=== PATIENT | female | born 1930 | race Caucasian/White ===

== ENCOUNTER 2018-11-23 12:31 | Inpatient (IN) | payer MEDICARE, OTHER ==
[~2018-11-23] VITALS: Ht 160 cm; Wt 61.3 kg
[2018-11-23] MEDS ORDERED: SODIUM CHLORIDE 0.9% 1000ML 1,000 ML IV STA (12:32)
--- OUTSIDE RECORDS SUMMARY | 2018-11-23 12:34 | XMS REPORT | Summary of Care ---
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
--- OUTSIDE RECORDS SUMMARY | 2018-11-23 12:34 | XMS REPORT | Continuity of Care Document ---
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 11/20/2012 [facility] [place] H/O: stroke Active Problem 04/28/2011 [facility] [place] BP - High blood pressure Active Problem 03/23/2014 [facility] [place] H/O: stroke Active Problem 03/23/2014 [facility] [place] Hyperlipidemia Active Problem 03/23/2014 [facility] [place] 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 03/23/2014 [facility] [place] OSTEOARTHROS NOS-L/LEG Active [facility] Medications Medication Details Route Status Patient Instructions Ordering Provider Order Date Source acetaminophen-hydrocodone 325 mg-5 mg oral tablet 1 tab, Route: PO, Drug Form: TAB, Q2H, PRN Pain, Start date: 11/07/10 15:13:00, Duration: 30 day, Stop date: 12/07/10 15:12:00 PO No Longer Active [place] 11/07/2010 [facility] acetaminophen-hydrocodone 325 mg-5 mg oral tablet 2 tab, Route: PO, Drug Form: TAB, Q4H, PRN Pain, Start date: 11/07/10 8:03:00, Duration: 30 day, Stop date: 12/07/10 8:02:00 PO No Longer Active [facility] 11/07/2010 [facility] morphine Sulfate 1 mg, 0.2 mL, Route: IV, Drug form: INJ, Q2H, PRN Breakthrough Pain, Start date: 11/06/10 17:21:00, Duration: 30 day, Stop date: 12/06/10 17:20:00 IV No Longer Active [facility] 11/06/2010 [facility] Norvasc 5 mg, 1 tab, Route: PO, Drug form: TAB, Daily, Start date: 11/06/10 9:00:00, Duration: 30 day, Stop date: 12/05/10 9:00:00 PO No Longer Active [facility] 11/06/2010 [facility] Lovenox 40 mg, 0.4 mL, Route: SUB-Q, Drug form: INJ, Daily, Start date: 11/06/10 8:00:00, Duration: 30 day, Stop date: 12/05/10 8:00:00 SUB-Q No Longer Active [facility] 11/06/2010 [facility] Restoril 30 mg, 1 cap, Route: PO, Drug form: CAP, Bedtime, PRN Sleep, Start date: 11/05/10 21:00:00, Duration: 30 day, Stop date: 12/05/10 20:59:00 PO No Longer Active [facility] 11/06/2010 [facility] Pepcid 20 mg, 1 tab, Route: PO, Drug form: TAB, Q12H, Start date: 11/05/10 21:00:00, Duration: 30 day, Stop date: 12/05/10 9:00:00 PO No Longer Active [facility] 11/06/2010 [facility] docusate sodium 100 mg oral capsule 100 mg, 1 cap, Route: PO, Drug form: CAP, BID, Start date: 11/05/10 17:00:00, Duration: 30 day, Stop date: 12/05/10 9:00:00 PO No Longer Active [place] 11/05/2010 [facility] Lipitor 10 mg, 1 tab, Route: PO, Drug form: TAB, QPM, Start date: 11/05/10 17:00:00, Duration: 30 day, Stop date: 12/04/10 17:00:00 PO No Longer Active [place] 11/05/2010 [facility] Celebrex 200 mg, 1 cap, Route: PO, Drug form: CAP, BID, Start date: 11/05/10 17:00:00, Duration: 5 day, Stop date: 11/10/10 9:00:00 PO No Longer Active [place] 11/05/2010 [facility] BD Normal Saline Flush 10 mL, Route: IVP, Drug Form: INJ, Q8H, Start date: 11/05/10 16:00:00, Duration: 30 day, Stop date: 12/05/10 8:00:00 IVP No Longer Active [facility] 11/05/2010 [facility] Cleocin HCl 600 mg, 50 mL, Route: IVPB, Drug form: INJ, ABXQ8H, Start date: 11/05/10 15:00:00, Duration: 3 doses or times, Stop date: 11/06/10 7:00:00 IVPB No Longer Active [facility] 11/05/2010 [facility] ropivacaine 10 mL, Route: NERVE BLOCK, Drug Form: INJ, Q3H, PRN Breakthrough Pain, Start date: 11/05/10 11:02:00, Duration: 30 day, Stop date: 12/05/10 11:01:00 NERVE BLOCK No Longer Active [facility] 11/05/2010 [facility] acetaminophen-hydrocodone 500 mg-5 mg oral tablet 2 tab, Route: PO, Drug Form: TAB, Q4H, PRN Breakthrough Pain, Start date: 11/05/10 11:02:00, Duration: 30 day, Stop date: 12/05/10 11:01:00 PO No Longer Active [place] 11/05/2010 [facility] Zofran 4 mg, 2 mL, Route: IVP, Drug form: INJ, Q6H, PRN Nausea, Start date: 11/05/10 11:02:00, Duration: 30 day, Stop date: 12/05/10 11:01:00 IVP No Longer Active [facility] 11/05/2010 [facility] ropivacaine 0.1% in NS 250 mL 250 mL, Route: EPIDURAL, Drug Form: INJ, Start date: 11/05/10 11:02:00, Duration: 30 day, Stop date: 12/05/10 11:01:00 EPIDURAL No Longer Active [facility] 11/05/2010 [facility] ropivacaine 0.1% in NS 250 mL 250 mL, Route: EPIDURAL, Drug Form: INJ, Start date: 11/05/10 11:01:00, Duration: 30 day, Stop date: 12/05/10 11:00:00 EPIDURAL No Longer Active [facility] 11/05/2010 [facility] Lactated Ringers Injection IV 1,000 mL 1,000 mL, Rate: 100 ml/hr, Infuse over: 10 hr, Route: IV, Total Volume: 1,000, Start date: 11/05/10 10:55:00, Stop date: 11/06/10 10:54:00 IV No Longer Active [place] 11/05/2010 [facility] BD Normal Saline Flush 10 mL, Route: IVP, Drug Form: INJ, PRN, PRN Line Flush, Start date: 11/05/10 10:54:00, Duration: 30 day, Stop date: 12/05/10 10:53:00 IVP No Longer Active [facility] 11/05/2010 [facility] Zofran ODT 8 mg, 2 tab, Route: PO, Drug form: TABDIS, Q8H, PRN Nausea, Start date: 11/05/10 10:52:00, Duration: 30 day, Stop date: 12/05/10 10:51:00 PO No Longer Active [facility] 11/05/2010 [facility] Dulcolax Laxative 10 mg, 1 supp, Route: WA, Drug form: SUPP, PRN, PRN Constipation, Start date: 11/05/10 10:52:00, Duration: 30 day, Stop date: 12/05/10 10:51:00 WA No Longer Active [facility] 11/05/2010 [facility] acetaminophen-hydrocodone 500 mg-7.5 mg oral tablet 2 tab, Route: PO, Drug Form: TAB, Q3H, PRN Pain, Start date: 11/05/10 10:52:00, Duration: 30 day, Stop date: 12/05/10 10:51:00 PO No Longer Active [place] 11/05/2010 [facility] acetaminophen-oxycodone 325 mg-5 mg oral tablet 2 tab, Route: PO, Drug Form: TAB, Q3H, PRN Pain, Start date: 11/05/10 10:52:00, Duration: 30 day, Stop date: 12/05/10 10:51:00 PO No Longer Active [place] 11/05/2010 [facility] acetaminophen-oxycodone 325 mg-5 mg oral tablet 1 tab, Route: PO, Drug Form: TAB, Q3H, PRN Pain, Start date: 11/05/10 10:51:00, Duration: 30 day, Stop date: 12/05/10 10:50:00 PO No Longer Active [place] 11/05/2010 [facility] Cepastat 1 lozenge, Route: MUCOUS MEM, PRN, Drug form: JOE PRN Sore Throat, Start date: 11/05/10 10:51:00, Duration: 30 day, Stop date: 12/05/10 10:50:00 MUCOUS MEM No Longer Active [facility] 11/05/2010 [facility] aluminum hydroxide-magnesium hydroxide 200 mg-200 mg/5 mL oral suspension 30 mL, Route: PO, Drug Form: SUSP, Q4H, PRN Indigestion, Start date: 11/05/10 10:51:00, Duration: 30 day, Stop date: 12/05/10 10:50:00 PO No Longer Active [facility] 11/05/2010 [facility] Benadryl 25 mg, 1 cap, Route: PO, Drug form: CAP, Q4H, PRN Itching, Start date: 11/05/10 10:51:00, Duration: 30 day, Stop date: 12/05/10 10:50:00 PO No Longer Active [facility] 11/05/2010 [facility] Tylenol 650 mg, 1 supp, Route: WA, Drug form: SUPP, Q4H, PRN Pain/Fever, Start date: 11/05/10 10:50:00, Duration: 30 day, Stop date: 12/05/10 10:49:00 WA No Longer Active [facility] 11/05/2010 [facility] Allergies, Adverse Reactions, Alerts Substance Category Reaction Severity Reaction type Status Date Reported Comments Source NKFA drug allergy Allergy Active [facility] penicillins drug allergy Allergy Active [facility] Immunizations Immunization Date Given Site Status Last Updated Comments Source Results Order Name Results Value Reference Range Date Interpretation Comments Source Humerus 2 views DX Humerus 2 views DX HISTORY: Pain TECHNIQUE: AP and lateral views of the right humerus COMPARISON: None FINDINGS: No acute fracture or dislocation. No suspicious osseous lesion. Moderate osteoarthritis seen at the acromioclavicular and glenohumeral joints. No overlying soft tissue abnormality. IMPRESSION: Moderate degenerative changes without evidence for acute osseous abnormality. 03/21/2014 - - Read by: Delmy Werner MD Dictated Date/time: 03/21/14 11:09 Electronically Signed by: Delmy Werner MD 03/21/14 11:09 FINAL REPORT RICHARD Metcalf Carotid artery Doppler bilat US Carotid artery Doppler bilat US CAROTID DOPPLER CLINICAL HISTORY: CVA TECHNIQUE: Grayscale, color Doppler, and spectral Doppler sonography were performed on both carotid and vertebral arteries. FINDINGS: Right: Mild plaque is seen at the carotid bifurcation. ICA PSV: 70 cm/s CCA PSV: 66 cm/s ICA/CCA PSV ratio: 1.1 Vertebral artery: Antegrade flow. Left: No significant atherosclerotic plaque is seen in the CCA or ICA. ICA PSV: 74 cm/s CCA PSV: 77 cm/s ICA/CCA PSV ratio: 0.9 Vertebral artery: Antegrade flow. PSV: Peak systolic velocity IMPRESSION: No sonographic evidence of hemodynamically significant carotid stenosis. According to the 2002 Consensus criteria: <50% stenosis: PSV <125 cm/sec, EDV <40cm/sec, ICA:CCA ratio <2 50-69% stenosis: PSV 125-230cm/sec, EDV 40-100cm/sec, ICA:CCA ratio 2-4 >70% stenosis: PSV >230cm/sec, EDV >100cm/sec, ICA:CCA ratio >4 03/21/2014 - - Read by: Delmy Werner MD Dictated Date/time: 03/21/14 08:07 Electronically Signed by: Delmy Werner MD 03/21/14 08:08 FINAL REPORT RICH[facility] Metcal[facility] Chest w contrast CT Chest w contrast CT CT scan of the chest with contrast 11/18/2012 CLINICAL HISTORY: Pulmonary nodule COMPARISON: 07/24/2010 FINDINGS: Relative to the prior examination, there has been no significant change. The supraclavicular region demonstrates a a stable appearing mixed attenuation nodule seen in the lower most aspect of left thyroid lobe that reaches a diameter of 1.6 cm. Elsewhere, the supraclavicular region is within normal limits. Few fat-containing lymph nodes are identified in the right axilla and no significantly enlarged mediastinal or hilar lymph nodes. The anterior left midlung zone demonstrates a subpleural roughly 8 millimeter pulmonary nodule that appears stable since previous. No additional nodular identified within the chest. No significant pleural or pericardial effusion is identified. The airway is patent. Cardiac chambers are normal in size and configuration. Minimal scarlike changes are identified in the basilar left lung base as well as the paravertebral right lung base. The upper abdominal structures are within the range of normal. IMPRESSION: Stable subpleural 8 mm pulmonary nodule left midlung zone appears unchanged since previous. 1.6 cm mixed attenuation nodule in left lower pole of the thyroid gland is likewise unchanged. 11/18/2012 - - Read by: Mikey Haynes Dictated Date/time: 11/19/12 11:29 Electronically Signed by: Mikey Haynes MD 11/19/12 11:38 FINAL REPORT RICHARD Metcalf Thyroid US Thyroid US THYROID ULTRASOUND HISTORY: 82 year-old female with a thyroid nodule. TECHNIQUE: Real-time minaya-scale imaging of the thyroid was performed with a high resolution transducer and supplemented with color Doppler. COMPARISON: None. FINDINGS: Right lobe dimensions are 4.4 x 1.5 x 1.7 cm. The isthmus is 0.4 cm in AP axis. The left lobe is 4.8 x 1.7 x 2 cm. The gland vascularity is normal. Multiple nodules seen in both lobes, the nodules are solid with heterogeneous echo structure. No calcifications seen in nodules. The right lobe at the upper pole has a solid complex nodule 1.4 x 1.8 x 0.9 cm. The left lobe at the upper pole has a solid complex nodule 1.8 x 2 x 1.6 cm at the mid third 1.4 x 1.6 x 1.4 cm and at the lower pole 1.3 x 1.6 x 1.3 cm. IMPRESSION: 1. Multinodular goiter. 2. Scattered nodules in both lobes largest on the right 1.8 cm at the upper pole and largest on the left also at the upper pole 2.0 cm. 11/18/2012 - - Read by: oKry Ly Dictated Date/time: 11/18/12 16:48 Electronically Signed by: Kory Ly MD 11/18/12 16:53 FINAL REPORT ISABELLA Metcal[facility] HEMATOLOGY Hct 27.0 % 36.0 - 48.0 11/07/2010 [facility] HEMATOLOGY Hgb 9.3 g/dL 12.0 - 16.0 11/07/2010 [facility] HEMATOLOGY Hct 28.5 % 36.0 - 48.0 11/06/2010 [facility] HEMATOLOGY Hgb 9.9 g/dL 12.0 - 16.0 11/06/2010 [facility] Vital Signs Vital Sign Value Date Comments Source Diastolic (mm Hg) 70.0 11/08/2010 [facility] Peripheral Pulse Rate 90.0 11/08/2010 [facility] Systolic (mm Hg) 121.0 11/08/2010 [facility] Temperature Oral (F) 99.1 F 11/08/2010 [facility] Respitory Rate 18.0 11/08/2010 [facility] Diastolic (mm Hg) 57.0 11/08/2010 [facility] Temperature Oral (F) 97.0 F 11/08/2010 [facility] Peripheral Pulse Rate 91.0 11/08/2010 [facility] Systolic (mm Hg) 122.0 11/08/2010 [facility] Respitory Rate 18.0 11/08/2010 [facility] Diastolic (mm Hg) 58.0 11/08/2010 [facility] Peripheral Pulse Rate 82.0 11/08/2010 [facility] Respitory Rate 18.0 11/08/2010 [facility] Temperature Oral (F) 97.0 F 11/08/2010 [facility] Systolic (mm Hg) 127.0 11/08/2010 [facility] Diastolic (mm Hg) 58.0 11/07/2010 [facility] Temperature Oral (F) 97.0 F 11/07/2010 [facility] Systolic (mm Hg) 108.0 11/07/2010 [facility] Respitory Rate 18.0 11/07/2010 [facility] Peripheral Pulse Rate 78.0 11/07/2010 [facility] Diastolic (mm Hg) 62.0 11/07/2010 [facility] Peripheral Pulse Rate 72.0 11/07/2010 [facility] Systolic (mm Hg) 107.0 11/07/2010 [facility] Temperature Oral (F) 97.1 F 11/07/2010 [facility] Respitory Rate 18.0 11/07/2010 [facility] Diastolic (mm Hg) 57.0 11/07/2010 [facility] Temperature Oral (F) 97.0 F 11/07/2010 [facility] Peripheral Pulse Rate 73.0 11/07/2010 [facility] Systolic (mm Hg) 104.0 11/07/2010 [facility] Respitory Rate 18.0 11/07/2010 [facility] Diastolic (mm Hg) 57.0 11/07/2010 [facility] Peripheral Pulse Rate 82.0 11/07/2010 [facility] Respitory Rate 18.0 11/07/2010 [facility] Temperature Oral (F) 97.5 F 11/07/2010 [facility] Systolic (mm Hg) 111.0 11/07/2010 [facility] Diastolic (mm Hg) 43.0 11/07/2010 [facility] Temperature Oral (F) 97.9 F 11/07/2010 [facility] Systolic (mm Hg) 90.0 11/07/2010 [facility] Respitory Rate 18.0 11/07/2010 [facility] Peripheral Pulse Rate 74.0 11/07/2010 [facility] Diastolic (mm Hg) 63.0 11/06/2010 [facility] Peripheral Pulse Rate 81.0 11/06/2010 [facility] Systolic (mm Hg) 114.0 11/06/2010 [facility] Temperature Oral (F) 97.2 F 11/06/2010 [facility] Respitory Rate 21.0 11/06/2010 [facility] Diastolic (mm Hg) 62.0 11/06/2010 [facility] Temperature Oral (F) 97.6 F 11/06/2010 [facility] Peripheral Pulse Rate 82.0 11/06/2010 [facility] Systolic (mm Hg) 111.0 11/06/2010 [facility] Respitory Rate 18.0 11/06/2010 [facility] Diastolic (mm Hg) 54.0 11/06/2010 [facility] Peripheral Pulse Rate 85.0 11/06/2010 [facility] Respitory Rate 20.0 11/06/2010 [facility] Temperature Oral (F) 98.1 F 11/06/2010 [facility] Systolic (mm Hg) 100.0 11/06/2010 [facility] Diastolic (mm Hg) 51.0 11/06/2010 [facility] Temperature Oral (F) 97.5 F 11/06/2010 [facility] Systolic (mm Hg) 92.0 11/06/2010 [facility] Respitory Rate 20.0 11/06/2010 [facility] Peripheral Pulse Rate 87.0 11/06/2010 [facility] Diastolic (mm Hg) 63.0 11/05/2010 [facility] Temperature Oral (F) 96.5 F 11/05/2010 [facility] Peripheral Pulse Rate 78.0 11/05/2010 [facility] Systolic (mm Hg) 112.0 11/05/2010 [facility] Respitory Rate 18.0 11/05/2010 [facility] Diastolic (mm Hg) 65.0 11/05/2010 [facility] Peripheral Pulse Rate 89.0 11/05/2010 [facility] Systolic (mm Hg) 114.0 11/05/2010 [facility] Respitory Rate 18.0 11/05/2010 [facility] Diastolic (mm Hg) 65.0 11/05/2010 [facility] Peripheral Pulse Rate 75.0 11/05/2010 [facility] Respitory Rate 18.0 11/05/2010 [facility] Systolic (mm Hg) 112.0 11/05/2010 [facility] Diastolic (mm Hg) 61.0 11/05/2010 [facility] Systolic (mm Hg) 100.0 11/05/2010 [facility] Respitory Rate 18.0 11/05/2010 [facility] Peripheral Pulse Rate 80.0 11/05/2010 [facility] Diastolic (mm Hg) 61.0 11/05/2010 [facility] Peripheral Pulse Rate 68.0 11/05/2010 [facility] Systolic (mm Hg) 105.0 11/05/2010 [facility] Respitory Rate 18.0 11/05/2010 [facility] Diastolic (mm Hg) 58.0 11/05/2010 [facility] Peripheral Pulse Rate 70.0 11/05/2010 [facility] Systolic (mm Hg) 108.0 11/05/2010 [facility] Respitory Rate 18.0 11/05/2010 [facility] Diastolic (mm Hg) 57.0 11/05/2010 [facility] Peripheral Pulse Rate 65.0 11/05/2010 [facility] Respitory Rate 18.0 11/05/2010 [facility] Systolic (mm Hg) 106.0 11/05/2010 [facility] Diastolic (mm Hg) 62.0 11/05/2010 [facility] Systolic (mm Hg) 114.0 11/05/2010 [facility] Respitory Rate 18.0 11/05/2010 [facility] Peripheral Pulse Rate 67.0 11/05/2010 [facility] Diastolic (mm Hg) 59.0 11/05/2010 [facility] Peripheral Pulse Rate 67.0 11/05/2010 [facility] Systolic (mm Hg) 98.0 11/05/2010 [facility] Respitory Rate 18.0 11/05/2010 [facility] Diastolic (mm Hg) 55.0 11/05/2010 [facility] Peripheral Pulse Rate 61.0 11/05/2010 [facility] Respitory Rate 18.0 11/05/2010 [facility] Systolic (mm Hg) 95.0 11/05/2010 [facility] Diastolic (mm Hg) 60.0 11/05/2010 [facility] Peripheral Pulse Rate 67.0 11/05/2010 [facility] Respitory Rate 18.0 11/05/2010 [facility] Systolic (mm Hg) 99.0 11/05/2010 [facility] Diastolic (mm Hg) 59.0 11/05/2010 [facility] Temperature Oral (F) 96.7 F 11/05/2010 [facility] Weight 60.0 11/05/2010 [facility] Systolic (mm Hg) 99.0 11/05/2010 [facility] Respitory Rate 18.0 11/05/2010 [facility] Height 152.4 cm 11/05/2010 [facility] Peripheral Pulse Rate 69.0 11/05/2010 [facility] Diastolic (mm Hg) 55.0 11/05/2010 [facility] Respitory Rate 8.0 11/05/2010 [facility] Systolic (mm Hg) 103.0 11/05/2010 [facility] Diastolic (mm Hg) 56.0 11/05/2010 [facility] Respitory Rate 19.0 11/05/2010 [facility] Systolic (mm Hg) 105.0 11/05/2010 [facility] Diastolic (mm Hg) 57.0 11/05/2010 [facility] Respitory Rate 21.0 11/05/2010 [facility] Systolic (mm Hg) 110.0 11/05/2010 [facility] Diastolic (mm Hg) 65.0 11/05/2010 [facility] Systolic (mm Hg) 101.0 11/05/2010 [facility] Respitory Rate 18.0 11/05/2010 [facility] Diastolic (mm Hg) 64.0 11/05/2010 [facility] Respitory Rate 14.0 11/05/2010 [facility] Systolic (mm Hg) 113.0 11/05/2010 [facility] Diastolic (mm Hg) 61.0 11/05/2010 [facility] Respitory Rate 15.0 11/05/2010 [facility] Systolic (mm Hg) 110.0 11/05/2010 [facility] Diastolic (mm Hg) 61.0 11/05/2010 [facility] Respitory Rate 15.0 11/05/2010 [facility] Systolic (mm Hg) 110.0 11/05/2010 [facility] Diastolic (mm Hg) 87.0 11/05/2010 [facility] Systolic (mm Hg) 143.0 11/05/2010 [facility] Temperature Oral (F) 98.0 F 11/05/2010 [facility] Height 152.4 cm 10/24/2010 [facility] Weight 59.4 10/24/2010 [facility] Encounters Location Location Details Encounter Type Encounter Number Reason For Visit Attending Provider ADM Date DC Date Status Source [facility] Inpatient [id number] W SHIRIN 11/05/2010 11/08/2010 Active [facility] [place] [facility] [id number] Ion Hendrix Jr 03/21/2014 03/22/2014 ISABELLA Metcalf Procedures Procedure Code Date Perfomer Comments Source
--- OUTSIDE RECORDS SUMMARY | 2018-11-23 12:34 | XMS REPORT | CCD ---
Author Author Auto Generated Organization [facility] Outpatient [facility] Address Unknown Phone Unavailable Care Team Providers Care Systems Navigator Name Role Phone Soumya Quiñones CP ChartServer, Login CP Unavailable Batsheva Stark CP [phone] Aurora Collier CP [phone] Meet Moreno CP Allergies, Adverse Reactions, Alerts Substance Reaction Status NKFA ?? Active penicillins ?? Active Problem List Condition Effective Dates Status BP - High blood pressure ?? Active H/O: stroke ?? Active Hyperlipidemia ?? 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
--- OUTSIDE RECORDS SUMMARY | 2018-11-23 12:34 | XMS REPORT | CCD ---
Author Author Auto Generated Organization [facility] Outpatient [facility] Address Unknown Phone Unavailable Care Team Providers Care Edger Automatic Name Role Phone Nuria Soumya CP ChartServer, Login CP Unavailable Batsheva Stark CP [phone] Aurora Collier CP [phone] Mikey Pérez III CP Allergies, Adverse Reactions, Alerts Substance Reaction Status NKFA ?? Active penicillins ?? Active Problem List Condition Effective Dates Status BP - High blood pressure ?? Active H/O: stroke ?? Active Hyperlipidemia ?? 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
--- OUTSIDE RECORDS SUMMARY | 2018-11-23 12:34 | XMS REPORT | CCD ---
Author Author Auto Generated Organization [facility] Address Unknown Phone Unavailable Care Team Providers Care Clip And Hanger Attacher Name Role Phone Luisito Cooper CP Unavailable Hari Alcaraz CP Unavailable Ambar Duffy CP Unavailable Sherif Brito CP Unavailable Audrey Perrin CP Unavailable Nuria Soumya CP Mireille Lynn CP Audra Maguire CP Liz Goyal CP Chelita De Los Santos CP [phone] Edgardo Del Rosario CP [phone] ChartServer, Login CP Unavailable Mallory Morris CP Komal Carroll CP [phone] Viviana Horne CP Amanda Herzog CP [phone] Diamond Jett CP Unavailable Kenny Alexander CP [phone] Krista Cloud CP [phone] Lluvia Ayoub CP Unavailable Batsheva Stark CP [phone] Cheyanne Collier CP [phone] Maria T Fraire CP SYSTEM, SYSTEM CP Unavailable Catherine Alvarez CP Unavailable Gautam Cuevas CP [phone] Adrian Bush CP Unavailable Addie Morfin CP Adore Lazo CP Unavailable Cheyanne Harris CP [phone] Seble Bush CP Tracy Vincent CP [phone] Nicole Tapia CP Unavailable Anaid Maya CP [phone] Sujatha Ho CP Simeon PérezIon CP Douglas Johnson CP Cheyanne Childress CP Javi Reyes CP [phone] Lesley Andrade CP [phone] Allergies, Adverse Reactions, Alerts Substance Reaction Status NKFA ?? Active penicillins ?? Active Problem List Condition Effective Dates Status BP - High blood pressure ?? Active H/O: stroke ?? Active Hyperlipidemia ?? 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 Medications Medication Instructions Start Date End Date Status Cleocin HCl 600 mg, 50 mL, Route: IVPB, Drug 11/05/2010 11/06/2010 Completed form: INJ, [id number], Start date: 11/05/10 15:00:00, Duration: 3 doses or times, Stop date: 11/06/10 7:00:00 acetaminophen-hydroc 1 tab, Route: PO, Drug Form: TAB, 11/07/2010 11/08/2010 Discontinued odone 325 mg-5 mg Q2H, PRN Pain, Start date: 11/07/10 oral tablet 15:13:00, Duration: 30 day, Stop date: 12/07/10 15:12:00 Lactated Ringers 1,000 mL, Rate: 100 ml/hr, Infuse 11/05/2010 11/06/2010 Completed Injection IV 1,000 over: 10 hr, Route: IV, Total mL Volume: 1,000, Start date: 11/05/10 10:55:00, Stop date: 11/06/10 10:54:00 BD Normal Saline 10 mL, Route: IVP, Drug Form: INJ, 11/05/2010 11/08/2010 Discontinued Flush PRN, PRN Line Flush, Start date: 11/05/10 10:54:00, Duration: 30 day, Stop date: 12/05/10 10:53:00 BD Normal Saline 10 mL, Route: IVP, Drug Form: INJ, 11/05/2010 11/08/2010 Discontinued Flush Q8H, Start date: 11/05/10 16:00:00, Duration: 30 day, Stop date: 12/05/10 8:00:00 Restoril 30 mg, 1 cap, Route: PO, Drug form: 11/05/2010 11/08/2010 Discontinued CAP, Bedtime, PRN Sleep, Start date: 11/05/10 21:00:00, Duration: 30 day, Stop date: 12/05/10 20:59:00 Restoril 15 mg, 1 cap, Route: PO, Drug form: 11/05/2010 11/08/2010 Discontinued CAP, Bedtime, PRN Sleep, Start date: 11/05/10 21:00:00, Duration: 30 day, Stop date: 12/05/10 20:59:00 Zofran ODT 8 mg, 2 tab, Route: PO, Drug form: 11/05/2010 11/08/2010 Discontinued TABDIS, Q8H, PRN Nausea, Start date: 11/05/10 10:52:00, Duration: 30 day, Stop date: 12/05/10 10:51:00 Dulcolax Laxative 10 mg, 1 supp, Route: HI, Drug 11/05/2010 11/08/2010 Discontinued form: SUPP, PRN, PRN Constipation, Start date: 11/05/10 10:52:00, Duration: 30 day, Stop date: 12/05/10 10:51:00 Dulcolax Laxative 10 mg, 2 tab, Route: PO, Drug form: 11/05/2010 11/08/2010 Discontinued ECTAB, Daily, PRN Constipation, Start date: 11/05/10 10:52:00, Duration: 30 day, Stop date: 12/05/10 10:51:00 acetaminophen-hydroc 2 tab, Route: PO, Drug Form: TAB, 11/05/2010 11/07/2010 Discontinued odone 500 mg-7.5 mg Q3H, PRN Pain, Start date: 11/05/10 oral tablet 10:52:00, Duration: 30 day, Stop date: 12/05/10 10:51:00 acetaminophen-hydroc 1 tab, Route: PO, Drug Form: TAB, 11/05/2010 11/07/2010 Discontinued odone 500 mg-7.5 mg Q3H, PRN Pain, Start date: 11/05/10 oral tablet 10:52:00, Duration: 30 day, Stop date: 12/05/10 10:51:00 acetaminophen-oxycod 2 tab, Route: PO, Drug Form: TAB, 11/05/2010 11/08/2010 Discontinued one 325 mg-5 mg oral Q3H, PRN Pain, Start date: 11/05/10 tablet 10:52:00, Duration: 30 day, Stop date: 12/05/10 10:51:00 morphine Sulfate 1 mg, 0.2 mL, Route: IV, Drug form: 11/06/2010 11/08/2010 Discontinued INJ, Q2H, PRN Breakthrough Pain, Start date: 11/06/10 17:21:00, Duration: 30 day, Stop date: 12/06/10 17:20:00 acetaminophen-oxycod 1 tab, Route: PO, Drug Form: TAB, 11/05/2010 11/08/2010 Discontinued one 325 mg-5 mg oral Q3H, PRN Pain, Start date: 11/05/10 tablet 10:51:00, Duration: 30 day, Stop date: 12/05/10 10:50:00 Cepastat 1 lozenge, Route: MUCOUS MEM, PRN, 11/05/2010 11/08/2010 Discontinued Drug form: JOE PRN Sore Throat, Start date: 11/05/10 10:51:00, Duration: 30 day, Stop date: 12/05/10 10:50:00 aluminum 30 mL, Route: PO, Drug Form: SUSP, 11/05/2010 11/08/2010 Discontinued hydroxide-magnesium Q4H, PRN Indigestion, Start date: hydroxide 200 mg-200 11/05/10 10:51:00, Duration: 30 mg/5 mL oral day, Stop date: 12/05/10 10:50:00 suspension Benadryl 25 mg, 1 cap, Route: PO, Drug form: 11/05/2010 11/08/2010 Discontinued CAP, Q4H, PRN Itching, Start date: 11/05/10 10:51:00, Duration: 30 day, Stop date: 12/05/10 10:50:00 Benadryl 25 mg, 0.5 mL, Route: IM, Drug 11/05/2010 11/08/2010 Discontinued form: INJ, Q4H, PRN Itching, Start date: 11/05/10 10:51:00, Duration: 30 day, Stop date: 12/05/10 10:50:00 Benadryl 12.5 mg, 0.25 mL, Route: IM, Drug 11/05/2010 11/08/2010 Discontinued form: INJ, Q4H, PRN Itching, Start date: 11/05/10 10:51:00, Duration: 30 day, Stop date: 12/05/10 10:50:00 Tylenol 650 mg, 1 supp, Route: HI, Drug 11/05/2010 11/08/2010 Discontinued form: SUPP, Q4H, PRN Pain/Fever, Start date: 11/05/10 10:50:00, Duration: 30 day, Stop date: 12/05/10 10:49:00 ropivacaine 10 mL, Route: NERVE BLOCK, Drug 11/05/2010 11/07/2010 Discontinued Form: INJ, Q3H, PRN Breakthrough Pain, Start date: 11/05/10 11:02:00, Duration: 30 day, Stop date: 12/05/10 11:01:00 acetaminophen-hydroc 2 tab, Route: PO, Drug Form: TAB, 11/05/2010 11/07/2010 Discontinued odone 500 mg-5 mg Q4H, PRN Breakthrough Pain, Start oral tablet date: 11/05/10 11:02:00, Duration: 30 day, Stop date: 12/05/10 11:01:00 acetaminophen-hydroc 1 tab, Route: PO, Drug Form: TAB, 11/05/2010 11/07/2010 Discontinued odone 500 mg-5 mg Q4H, PRN Breakthrough Pain, Start oral tablet date: 11/05/10 11:02:00, Duration: 30 day, Stop date: 12/05/10 11:01:00 Zofran 4 mg, 2 mL, Route: IVP, Drug form: 11/05/2010 11/07/2010 Discontinued INJ, Q6H, PRN Nausea, Start date: 11/05/10 11:02:00, Duration: 30 day, Stop date: 12/05/10 11:01:00 ropivacaine 0.1% in 250 mL, Route: EPIDURAL, Drug Form: 11/05/2010 11/07/2010 Discontinued NS 250 mL INJ, Start date: 11/05/10 11:02:00, Duration: 30 day, Stop date: 12/05/10 11:01:00 acetaminophen-hydroc 2 tab, Route: PO, Drug Form: TAB, 11/07/2010 11/07/2010 Discontinued odone 325 mg-5 mg Q4H, PRN Pain, Start date: 11/07/10 oral tablet 8:03:00, Duration: 30 day, Stop date: 12/07/10 8:02:00 Tylenol 650 mg, 2 tab, Route: PO, Drug 11/05/2010 11/08/2010 Discontinued form: TAB, Q4H, PRN Pain/Fever, Start date: 11/05/10 10:50:00, Duration: 30 day, Stop date: 12/05/10 10:49:00 docusate sodium 100 100 mg, 1 cap, Route: PO, Drug 11/05/2010 11/08/2010 Discontinued mg oral capsule form: CAP, BID, Start date: 11/05/10 17:00:00, Duration: 30 day, Stop date: 12/05/10 9:00:00 Pepcid 20 mg, 1 tab, Route: PO, Drug form: 11/05/2010 11/08/2010 Discontinued TAB, Q12H, Start date: 11/05/10 21:00:00, Duration: 30 day, Stop date: 12/05/10 9:00:00 Lipitor 10 mg, 1 tab, Route: PO, Drug form: 11/05/2010 11/08/2010 Discontinued TAB, QPM, Start date: 11/05/10 17:00:00, Duration: 30 day, Stop date: 12/04/10 17:00:00 acetaminophen-hydroc 1 tab, Route: PO, Drug Form: TAB, 11/07/2010 11/07/2010 Discontinued odone 325 mg-5 mg Q4H, PRN Pain, Start date: 11/07/10 oral tablet 8:03:00, Duration: 30 day, Stop date: 12/07/10 8:02:00 Lovenox 40 mg, 0.4 mL, Route: SUB-Q, Drug 11/06/2010 11/08/2010 Discontinued form: INJ, Daily, Start date: 11/06/10 8:00:00, Duration: 30 day, Stop date: 12/05/10 8:00:00 Celebrex 200 mg, 1 cap, Route: PO, Drug 11/05/2010 11/08/2010 Discontinued form: CAP, BID, Start date: 11/05/10 17:00:00, Duration: 5 day, Stop date: 11/10/10 9:00:00 Norvasc 5 mg, 1 tab, Route: PO, Drug form: 11/06/2010 11/08/2010 Discontinued TAB, Daily, Start date: 11/06/10 9:00:00, Duration: 30 day, Stop date: 12/05/10 9:00:00 ropivacaine 0.1% in 250 mL, Route: EPIDURAL, Drug Form: 11/05/2010 11/07/2010 Discontinued NS 250 mL INJ, Start date: 11/05/10 11:01:00, Duration: 30 day, Stop date: 12/05/10 11:00:00 Vital Signs Most recent to oldest [Reference Range]: 1 2 3 Height 152.40 cm (11/05/2010 10:45:00) ?? 152.40 cm (10/24/2010 07:57:00) ? Temperature Oral [96.4-99.1 DegF] 99.1 DegF (11/08/2010 08:00:00) ?? 97.0 DegF (11/08/2010 00:53:00) ?? 97.0 DegF (11/07/2010 20:37:00) ?? Systolic Blood Pressure [90-140 mmHg] 121 mmHg (11/08/2010 08:00:00) ?? 122 mmHg (11/08/2010 00:53:00) ?? 127 mmHg (11/07/2010 20:37:00) ?? Diastolic Blood Pressure [60-90 mmHg] 70 mmHg (11/08/2010 08:00:00) ?? 57 mmHg *LOW* (11/08/2010 00:53:00) ?? 58 mmHg *LOW* (11/07/2010 20:37:00) ?? Respiratory Rate [14-20 BRMIN] 18 BRMIN (11/08/2010 08:00:00) ?? 18 BRMIN (11/08/2010 00:53:00) ?? 18 BRMIN (11/07/2010 20:37:00) ?? Peripheral Pulse Rate [60-100 bpm] 90 bpm (11/08/2010 08:00:00) ?? 91 bpm (11/08/2010 00:53:00) ?? 82 bpm (11/07/2010 20:37:00) ?? Weight 60.000 kg (11/05/2010 10:45:00) ?? 59.400 kg (10/24/2010 07:57:00) ? Results HEMATOLOGY Most recent to oldest [Reference Range]: 1 2 Hgb [12.0-16.0 g/dL] 9.3 g/dL *LOW* (11/07/2010 04:40:00) ?? 9.9 g/dL *LOW* (11/06/2010 04:50:00) ?? Hct [36.0-48.0 %] 27.0 % *LOW* (11/07/2010 04:40:00) ?? 28.5 % *LOW* (11/06/2010 04:50:00) ??
--- OUTSIDE RECORDS SUMMARY | 2018-11-23 12:34 | XMS REPORT | CCD ---
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
[2018-11-23 13:22] LABS: BASOPHILS % 0.3 % (0.0-1.0); EOSINOPHILS % 0.2 % (0.0-6.0); HEMATOCRIT 42.5 % (34.2-44.1); HEMOGLOBIN 14.3 g/dL (12.0-16.0); LYMPHOCYTES # (AUTO) 0.7 (1.0-3.2); LYMPHOCYTES % 8.1 % (18.0-39.1); MEAN CORPUSCULAR HEMOGLOBIN 33.5 pg (28-32); MEAN CORPUSCULAR HGB CONC 33.6 g/dL (31-35); MEAN CORPUSCULAR VOLUME 99.5 fL (81-99); MONOCYTES # (AUTO) 0.3 (0.2-0.8); MONOCYTES % 3.7 % (4.4-11.3); NEUTROPHILS # (AUTO) 7.5 (2.1-6.9); NEUTROPHILS % 87.1 % (38.7-80.0); PLATELET COUNT 202 x10e3/uL (140-360); RED BLOOD COUNT 4.27 x10e6/uL (3.6-5.1); RED CELL DISTRIBUTION WIDTH 12.5 % (11.7-14.4)
[2018-11-23 13:27] LABS: BILIRUBIN,URINE NEGATIVE (NEGATIVE); CLARITY,URINE CLEAR (CLEAR); COLOR,URINE COLORLESS (YELLOW); KETONES,URINE TRACE (NEGATIVE); LEUKOCYTE ESTERASE ,URINE NEGATIVE (NEGATIVE); NITRITE,URINE NEGATIVE (NEGATIVE); PROTEIN,URINE DIPSTICK NEGATIVE (NEGATIVE); URINE UROBILINOGEN 0.2 mg/dL (0.2 - 1)
[2018-11-23 13:40] LABS: ALANINE AMINOTRANSFERASE 19 IU/L (0-55); ALBUMIN 4.2 g/dL (3.5-5.0); ALBUMIN/GLOBULIN RATIO 1.4 (0.8-2.0); ALKALINE PHOSPHATASE 133 IU/L (40-150); ANION GAP 14.8 mmol/L (8-16); BLOOD UREA NITROGEN 20 mg/dL (7-26); BUN/CREATININE RATIO 24 (6-25); CARBON DIOXIDE 23 mmol/L (22-29); CHLORIDE 103 mmol/L (98-107); CREATINE KINASE 98 IU/L (29-168); CREATININE, SERUM 0.85 mg/dL (0.57-1.11); EST GLOMERULAR FILTRATION RATE > 60 ML/MIN (60-); GLUCOSE 138 mg/dL (74-118); POTASSIUM 3.8 mmol/L (3.5-5.1); SODIUM 137 mmol/L (136-145)
[2018-11-23 13:41] LABS: BACTERIA,URINE RARE /HPF
--- NOTE | 2018-11-23 13:59 | Diagnostic Imaging Report ---
Chest, 1 view, 11/23/2018. History: Weakness, diarrhea. Comparison: None available. Findings: The cardiomediastinal silhouette and pulmonary vasculature are within normal limits for a portable exam. There is likely calcification of the mitral valve. There is biapical pleural thickening. There is no focal consolidation or pleural effusion. Degenerative changes are noted in the left shoulder. There are no acute osseous or soft tissue abnormalities. Impression: No acute cardiopulmonary abnormality. Signed by: Georges Candelario on 11/23/2018 1:56 PM
[2018-11-23] MEDS ORDERED: LEVOTHYROXINE50 MCG PO (14:14)
[2018-11-23] MEDS ORDERED: ARICEPT5 MG PO (14:14)
[2018-11-23] MEDS ORDERED: NORVASC5 MG PO (14:14)
[2018-11-23] MEDS ORDERED: SODIUM CHLORIDE 0.9% 50ML 50 ML ONE (16:26)
[2018-11-23] MEDS ORDERED: IOPAMIDOL 370 MG/ML 200 ML INFUS..BTL INJ ONE (16:26)
--- NOTE | 2018-11-23 17:38 | Diagnostic Imaging Report ---
EXAM: CT Abdomen and Pelvis WITH contrast INDICATION: ^DIARRHEA ELEVATED LACTIC ACID ^[id number] ^1515 ^Y COMPARISON: Chest radiograph 2018 TECHNIQUE: Abdomen and pelvis were scanned utilizing a multidetector helical scanner from the lung base to the pubic symphysis after administration of IV contrast. Coronal and sagittal reformations were obtained. Routine protocol was performed. Scan was performed when during portal venous phase. IV CONTRAST: 100 mL of Isovue-370 ORAL CONTRAST: Water RADIATION DOSE: Total DLP: 282.9 mGy*cm Estimated effective dose: (DLP x 0.015 x size factor) mSv COMPLICATIONS: None FINDINGS: LINES and TUBES: None. LOWER THORAX: Minimal atelectasis in the right lower lobe and lingula. Calcifications of the posterior mitral annulus. HEPATOBILIARY: No focal hepatic lesions. No biliary ductal dilation. GALLBLADDER: No radio-opaque stones or sludge. No wall thickening. SPLEEN: No splenomegaly. PANCREAS: No focal masses or ductal dilatation. ADRENALS: No adrenal nodules KIDNEYS/URETERS: Kidneys enhance symmetrically. No hydronephrosis. Multiple bilateral parapelvic renal cysts measuring up to 2 cm on the left. No stones. GI TRACT: No abnormal distention, wall thickening, or evidence of bowel obstruction. Scattered diverticulosis throughout the ascending colon without diverticulitis. There is mild hyperemia surrounding few loops of small bowel in the left abdomen on coronal image 68. No fluid collections or abscess. The appendix is not well-visualized but appears to be in the right lower quadrant and be normal in appearance (coronal image 67). PELVIC ORGANS/BLADDER: The urinary bladder is moderately distended. Status post hysterectomy. LYMPH NODES: No lymphadenopathy. VESSELS: Mild nonobstructing atherosclerotic calcifications of the abdominal aorta and pelvic arteries without aneurysm. The celiac trunk and SMA are patent. There is a mild noncalcified protruding plaque in the descending thoracic aorta, measuring 6 mm on series 2, image 8. PERITONEUM / RETROPERITONEUM: No free air or fluid. BONES: Mild multilevel degenerative changes of the lumbar spine. SOFT TISSUES: Laxity of the anterior rectus muscle with mesenteric fat protruding in the anterior lower abdominal wall. This is consistent with diastasis of the rectus muscle. IMPRESSION: Scattered diverticulosis throughout the ascending colon without diverticulitis. Mild hyperemia surrounding a few loops of small bowel in the left abdomen may reflect acute enteritis. No small bowel wall thickening, surrounding fluid collections or abscess. Signed by: Dr. Lea Norris M.D. on 11/23/2018 5:35 PM
[2018-11-23] MEDS ORDERED: ONDANSETRON HCL INJ 2MG/ML 2ML 2 MG/ML VIAL IV PRN (19:00)
--- OUTSIDE RECORDS SUMMARY | 2018-11-23 19:04 | XMS REPORT ---
Author Author [facility] Address Unknown Phone Unavailable Care Team Providers Care Statistical Assistant Name Role Phone Josette MARCANO Unavailable Unavailable Problems This patient has no known problems. Allergies, Adverse Reactions, Alerts This patient has no known allergies or adverse reactions. Medications This patient has no known medications. Results Test Description Test Time Test Comments Text Results Atomic Results Result Comments CT ABDOMEN/PELVIS W 2018-11-23 17:24:00 [place] [address] Patient Name: AURORA MORENO MR #: [id number] : 1930 Age/Sex: 88/F Req #: [id number] Adm Physician: Ordered by: ANTOINE MARCANO MD Report #: [id number] Location: ER Room/Bed: Procedure: [id number] CT/CT ABDOMEN/PELVIS W Exam Date: 11/23/18 Exam Time: 1515 REPORT STATUS: Signed EXAM: CT Abdomen and Pelvis WITH contrast INDICATIO N: DIARRHEA ELEVATED LACTIC ACID [id number] 1515 Y COMPARISON: Chest radiograph 2018 TECHNIQUE: Abdomen and pelvis were scanned utilizing a multidetector helical scanner from the lung base to the pubic symphysis after administration of IV contrast. Coronal and sagittal reformations were obtained. Routine protocol was performed. Scan was performed when during portal venous phase. IV CONTRAST: 100 mL of Isovue-370 ORAL CONTRAST: Water RADIATION DOSE: Total DLP: 282.9 mGy*cm Estimated effective dose: (DLP x 0.015 x size factor) mSv COMPLICATIONS: None FINDINGS: LINES and TUBES: None. LOWER THORAX: Minimal atelectasis in the right lower lobe and lingula. Calcifications of the posterior mitral annulus. HEPATOBILIARY: No focal hepatic lesions. No biliary ductal dilation. GALLBLADDER: No radio-opaque stones or sludge. No wall thickening. SPLEEN: No splenomegal y. PANCREAS: No focal masses or ductal dilatation. ADRENALS: No adrenal nodules KIDNEYS/URETERS: Kidneys enhance symmetrically. No hydronephrosis. Multiple bilateral parapelvic renal cysts measuring up to 2 cm on the left. No stones. GI TRACT: No abnormal distention, wall thickening, or evidence of bowel obstruction. Scattered diverticulosis throughout the ascending colon without diverticulitis. There is mild hyperemia surrounding few loops of small bowel in the left abdomen on coronal image 68. No fluid collections or abscess. The appendix is not well-visualized but appears to be in the right lower quadrant and be normal in appearance (coronal image 67). PELVIC ORGANS/BLADDER: The urinary bladder is moderately distended. Status post hysterectomy. LYMPH NODES: No lymphadenopathy. VESSELS: Mild nonobstructing atherosclerotic calcifications of the abdominal aorta and pelvic arteries without aneurysm. The celiac trunk and SMA are patent. There is a mild noncalcified protruding plaque in the descending thoracic aorta, measuring 6 mm on series 2, image 8. PERITONEUM / RETROPERITONEUM: No free air or fluid. BONES: Mild multilevel degenerative changes of the lumbar spine. SOFT TISSUES: Laxity of the anterior rectus muscle with mesenteric fat protruding in the anterior lower abdominal wall. This is consistent with diastasis of the rectus muscle. IMPRESSION: Scattered diverticulosis throughout the ascending colon without diverticulitis. Mild hyperemia surrounding a few loops of small bowel in the left abdomen may reflect acute enteritis. No small bowel wall thickening, surrounding fluid collections or abscess. Signed by: Dr. Luis Alfredo Farias M.D. on 11/23/2018 5:35 PM Dictated By: LUIS ALFREDO FARIAS MD [id number] Transcribed By: MAKSIM on 11/23/184 COPY TO: ANTOINE MARCANO MD CHEST SINGLE (PORTABLE) 2018-11-23 13:54:00 [place] [address] Patient Name: AURORA MORENO MR #: [id number] : 1930 Age/Sex: 88/F Req #: [id number] Adm Physician: Ordered by: ANTOINE MARCANO MD Report #: [id number] Location: ER Room/Bed: Procedure: [id number] DX/CHEST SINGLE (PORTABLE) Exam Date: 11/23/18 Exam Time: 1245 REPORT STATUS: Signed Chest, 1 view, 11/23/2018. History: Weakn ess, diarrhea. Comparison: None available. Findings: The cardiomediastinal silhouette and pulmonary vasculature are within normal limits for a portable exam. There is likely calcification of the mitral valve. There is biapical pleural thickening. There is no focal consolidation or pleural effusion. Degenerative changes are noted in the left shoulder. There are no acute osseous or soft tissue abnormalities. Impression: No acute cardiopulmonary abnormality. Signed by: Georges Candelario on 11/23/2018 1:56 PM Dictated By: GEORGES CANDELARIO MD 1356 Transcribed By: MAKSIM on 11/23/18 1357 COPY TO: ANTOINE MARCANO MD
[2018-11-23] MEDS: CEFEPIME 1GM/NS 0.9% 50 ML 50 ML IV SCH (19:42)
--- NOTE | 2018-11-23 20:11 | NUR ---
PT IS TRANSFERRED FROM ER .PT AOX3 .PT WAS AGITATED .PT REFUSED TO TAKE THE MEDICINE .DR VALDEZ HAVE SEEN TH PT .ALL HEALTH TEAM . DAUGHTER AND TALKED TO HER FINALLY PT HAS TAKEN THE IV MEDS FAMILY AT THE BEDSIDE .RESPIRATIONS ARE EVEN AND UNLABORED SKIN WARM AND DRY TO TOUCH .DENIES PAIN CALL LIGHT WITH IN REACH .CONTINUE TO MONITOR
[2018-11-23] MEDS ORDERED: ACETAMINOPHEN 325 MG TAB PO PRN (20:15)
[2018-11-23 20:43] LABS: THYROID STIMULATING HORMONE 2.251 uIU/mL (0.350-4.940)
[2018-11-23] MEDS: HEPARIN SOD (PORCINE) 5,000 UNIT/ML VIAL SC SCH (21:00)
[2018-11-23] MEDS ORDERED: AZITHROMYCIN 250 MG TAB PO ONE (21:09)
[2018-11-23 21:20] LABS: FREE THYROXINE INDEX 0.3521 (1.4-3.8)
[2018-11-23] MEDS: METRONIDAZOLE 500MG/NS 100ML IV SCH (21:44)
[2018-11-23] MEDS: SODIUM CHLORIDE 0.9% 1000ML 1,000 ML IV SCH (21:44)
[2018-11-23] MEDS ORDERED: HALOPERIDOL 1 MG TAB PO PRN (23:45)
[2018-11-24] VITALS (8 sets, daily range): BP systolic 117–169; BP diastolic 65–104
[2018-11-24] MEDS: VANCOMYCIN 250MG/5ML ORAL SOLN PO SCH ×4 (00:23→18:20)
--- NOTE | 2018-11-24 02:33 | History and Physical ---
Patient of Dr. Perdomo . Admitted to my service. I looked in his absence. HISTORY OF PRESENT ILLNESS: Ms. Claire is a charming 88-year-old woman. Her called me this morning because she was having diarrhea and is more confused than usual. She has had diarrhea previous episode approximately 2 weeks ago and then became ill on the 12 of November. She became subsequently ill approximately a week ago in a baby shower for her grandson. Nauseated and clammy, vomited once in a restaurant. She has had nausea and diarrhea this morning, but no fever or chills. She has a history of an old stroke 7 years ago, history of dementia and hypertension. She is irregular about cleaning her refrigerator. She is regular about taking her medicines. 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 Born in [place]. Nonsmoker. No alcohol. She has had knee replacements, back surgery, hysterectomy. No history of cancer. MEDICATIONS: Listed as Norvasc, Aricept, and Levoxyl, though it is uncertain whether she is actually taking it or not, most likely that she is not. PHYSICAL EXAMINATION: VITAL SIGNS: Temperature 98.3, pulse 76, respirations 18, blood pressure 153/69. HEENT: Head is normocephalic and atraumatic. Eyes, extraocular movements intact. LUNGS: Clear. HEART: Regular rhythm. ABDOMEN: Nontender. EXTREMITIES: Nonedematous. IMPRESSION: Gastroenteritis and dementia. Discussed with ID. It is possible that she ate something in the restaurant, which was contaminated or perhaps from her own refrigerator. Currently, she is on Flagyl and cefepime. Consider Rocephin/Zithromax. The patient's DNR status was confirmed with the family. Thank you for this kind referral. MD GIULIA Lawrence/TONI /[id number] MTDD
[2018-11-24] MEDS: SODIUM CHLORIDE 0.9% 1000ML 1,000 ML IV SCH ×3 (02:47→18:47)
[2018-11-24] MEDS: METRONIDAZOLE 500MG/NS 100ML IV SCH ×2 (03:52→09:00)
[2018-11-24] MEDS: LEVOTHYROXINE SODIUM 50 MCG TAB PO SCH (06:42)
[2018-11-24] MEDS ORDERED: HALOPERIDOL LACTATE 5 MG/ML VIAL IV PRN (06:45)
[2018-11-24] MEDS: CEFEPIME 1GM/NS 0.9% 50 ML 50 ML IV SCH ×2 (07:00→19:00)
--- NOTE | 2018-11-24 07:09 | NUR ---
PT LYING IN BED SPINE RESP EVEN AND UNLABORED AT THIS TIME NO DISTRESS NOTED, PT HAS SITTER AT BEDSIDE, CALL LIGHT IN REACH.
--- NOTE | 2018-11-24 07:12 | NUR ---
PT ALERT RESP EVEN AND UNLABORED AND IN BED, PT CONFUSED AND FAMILY MEMBER AT BEDSIDE. PT HAS NO IV SITE, CALL LIGHT IN REACH.
--- NOTE | 2018-11-24 07:34 | NUR ---
PT WAS AGITATED DURING THE NIGHT .PT PULLED THE IV OUT .NOTIFIED DR CUMMINS .GOT THE ORDER FOR SITTER
--- NOTE | 2018-11-24 07:37 | NUR ---
REPORT GIVEN TO THE ONCOMING NURSE
[2018-11-24 07:59] LABS: BASOPHILS % 0.5 % (0.0-1.0); EOSINOPHILS # (AUTO) 0.1 (0.0-0.4); EOSINOPHILS % 1.1 % (0.0-6.0); HEMATOCRIT 45.4 % (34.2-44.1); HEMOGLOBIN 14.7 g/dL (12.0-16.0); LYMPHOCYTES # (AUTO) 1.5 (1.0-3.2); LYMPHOCYTES % 19.9 % (18.0-39.1); MEAN CORPUSCULAR HEMOGLOBIN 33.3 pg (28-32); MEAN CORPUSCULAR HGB CONC 32.4 g/dL (31-35); MEAN CORPUSCULAR VOLUME 102.7 fL (81-99); MONOCYTES # (AUTO) 0.5 (0.2-0.8); MONOCYTES % 7.4 % (4.4-11.3); NEUTROPHILS # (AUTO) 5.2 (2.1-6.9); NEUTROPHILS % 70.8 % (38.7-80.0); PLATELET COUNT 167 x10e3/uL (140-360); RED BLOOD COUNT 4.42 x10e6/uL (3.6-5.1); RED CELL DISTRIBUTION WIDTH 12.4 % (11.7-14.4)
--- NOTE | 2018-11-24 08:10 | NUR ---
pt ambulating in [place] with sitter looking for her , pt gait steady.
[2018-11-24 08:15] LABS: ALANINE AMINOTRANSFERASE 20 IU/L (0-55); ALBUMIN/GLOBULIN RATIO 1.3 (0.8-2.0); ALKALINE PHOSPHATASE 117 IU/L (40-150); ANION GAP 14.1 mmol/L (8-16); BLOOD UREA NITROGEN 13 mg/dL (7-26); BUN/CREATININE RATIO 15 (6-25); CARBON DIOXIDE 24 mmol/L (22-29); CHLORIDE 101 mmol/L (98-107); CREATININE, SERUM 0.88 mg/dL (0.57-1.11); EST GLOMERULAR FILTRATION RATE > 60 ML/MIN (60-); GLUCOSE 106 mg/dL (74-118); POTASSIUM 3.1 mmol/L (3.5-5.1); SODIUM 136 mmol/L (136-145)
[2018-11-24] MEDS: RIVASTIGMINE PATCH 4.6MG/24 HOURS PATCH TD SCH (09:00)
[2018-11-24] MEDS: HEPARIN SOD (PORCINE) 5,000 UNIT/ML VIAL SC SCH ×2 (09:00→21:00)
[2018-11-24] MEDS ORDERED: AZITHROMYCIN 250 MG TAB PO SCH (09:00)
--- NOTE | 2018-11-24 10:12 | NUR ---
Dr Villalba here to see pt.
--- NOTE | 2018-11-24 14:21 | NUR ---
CALL TO DR CUMMINS FOR MEDICATION
[2018-11-24] MEDS ORDERED: ONDANSETRON HCL 4 MG ORAL DISINTEGRATING TAB PO PRN (15:45)
--- NOTE | 2018-11-24 16:11 | NUR ---
pt ambulating in room, resp even and unlabored. call light in reach.
[2018-11-24] MEDS ORDERED: RISPERIDONE 0.5 MG TAB PO PRN (17:15)
[2018-11-24] MEDS ORDERED: HALOPERIDOL LACTATE 5 MG/ML VIAL IM PRN (17:15)
[2018-11-24] MEDS: METRONIDAZOLE 500 MG TAB PO SCH ×2 (18:20→22:00)
--- NOTE | 2018-11-24 19:23 | NUR ---
report given to oncoming nurse, pt stable at shift change.
--- NOTE | 2018-11-24 20:00 | NUR ---
RECEIVED PT SITTING ON THE CHAIR WITH .PT IS CALM NOW .NO IV LINE .FAMILY AT THE BEDSIDE CALL LIGHT WITH IN REACH .CONTINUE TO MONITOR
[2018-11-24] MEDS: RISPERIDONE 0.5 MG TAB PO SCH (21:00)
--- NOTE | 2018-11-24 22:17 | Consultation ---
DATE OF CONSULTATION: REASON FOR CONSULTATION: Abdominal pain and diarrhea. HISTORY OF PRESENT ILLNESS: This patient who is an 88-year-old white female with history of dementia. The patient does not provide any meaningful information. She is alert, follows command. She presented to the emergency room yesterday because she was not feeling well and weak. The patient was totally confused, alert but aggressive behavior. Her family at the bedside. The patient was brought yesterday because in the last 2 weeks she had three episodes of diarrhea, which was really bad, had to stay in the bathroom. The patient had one episode of vomiting according to the family. The patient was too weak yesterday and that she was not able to leave the restroom, so her "contacted her daughter and she was brought to the emergency room." In the emergency room, she was evaluated and she is admitted. The patient is reluctant to take antibiotic, although she received a dose of cefepime, but then she denies IV antibiotic. She took a dose of Flagyl, I was contacted. We tried oral Flagyl and oral vancomycin. The patient again difficult to do any test. She is aggressive, but since admission, there is no diarrhea, no fever, no chills, no nausea, no vomiting. The patient to have a CAT scan, which causes scattered diverticulosis without diverticulitis. We also had blood work. Her white count is 8.62, hemoglobin 14, hematocrit 42, her platelet of 202. Her sodium 136, potassium 3.1, and creatinine 0.88. Her liver enzyme within normal limit. Her TSH 2.25. The patient who is currently alert, walking in the room. She wants to leave the room looking for her . Has no complaints. Aggressive behavior. There is no pain, no nausea, no vomiting, no diarrhea. The family at the bedside, her daughter. Her laboratory data also showed that she had a lactic acid of 26.5. PAST MEDICAL HISTORY: Dementia and now aggressive behavior. PAST SURGICAL HISTORY: Denies. ALLERGIES: NKA. SOCIAL HISTORY: There is no smoking, drug abuse, or alcohol abuse. FAMILY HISTORY: Otherwise noncontributory. REVIEW OF SYSTEMS: The patient denies any, but she is confused with aggressive behavior. HEENT: There is no headache, visual changes, or hearing changes. GI: Since admission, there is no nausea, no vomiting, no diarrhea. CARDIAC: There is no arrhythmia. NEURO: No seizure activity. SKIN: There are no other rashes. JOINT: No edema or erythema. PHYSICAL EXAMINATION: GENERAL: She is alert, follows command. VITAL SIGNS: Stable, currently afebrile. HEENT: She is not icteric. NECK: Supple. CHEST: Clear. HEART: S1, S2. No S3, S4, or murmur. ABDOMEN: Soft. Bowel sounds present. No tenderness. EXTREMITIES: No edema. SKIN: No rash. LABORATORY DATA: Since admission reviewed. IMPRESSION: Three episodes of diarrhea with one episode of vomiting over the last 2 weeks. Currently, there is none. CAT scan does not reveal diverticulitis. It could be gastroenteritis. There is no fever per family. Suggest supportive care. Try Pepto-Bismol antibiotic. At the present time, we will discuss with Dr. Marrero. For her aggressive behavior, psych is consulted dementia. We will follow with you. Thank you for asking me to see this patient. MD SOBEIDA Mcneal/TONI /[id number]
--- NOTE | 2018-11-24 23:07 | History and Physical ---
ADDENDUM: The patient has acidosis, probably secondary to gastroenteritis. The patient agreed to take Flagyl 500 mg p.o. q.8 hours for now. We will try also Cipro 500 mg p.o. b.i.d. The patient is reluctant to take IV antibiotic. Discussed with Internal Medicine. MD SOBEIDA Mcneal/TONI /[id number]
--- NOTE | 2018-11-25 01:42 | Consultation ---
DATE OF CONSULTATION: 11/24/2018 Psychiatric Consultation REASON FOR CONSULTATION: To evaluate the patient's psychosis and dementia. HISTORY OF PRESENT ILLNESS: The patient is an 88-year-old female admitted to the hospital for acute lactic acidosis. Psychiatric consultation is called to evaluate psychosis. As per the medical record, the patient has history of dementia and gastroenteritis. Upon evaluation today, the patient is found to be in the room with her and her daughter and also the sitter. She is alert, awake, and oriented to self and situation. She is ambulatory. She is calm at this time, but somewhat grasper. She is confused, does not know where she is. She thinks she is in a hotel. She does not know the current year. She is forgettable, but denies any depression or anxiety. She denies any hallucination. She denies any problem with sleep or appetite. She is not reporting any suicidal ideation. The patient agrees for me to talk to the daughter, who is in the room, had a long extensive discussion with the daughter, who reports the patient at home. The patient has been exhibiting signs of dementia for many years. She has been refusing medication. She then corroborated with the family members, with nursing staff, she is suspicious, she is unable to talk herself at home, but also refusing help as well. Family members include the son-in-law is a physician and has discussed with all the family members and thought and they have agreed that the patient need an antipsychotic medication to help with her psychosis. However, due to her noncompliance, they have not been able to start the medication for her. They have been wanting to have her on Risperdal due to it potency and side effect profile. I discussed side effect profile with the daughter and she is aware of that as well as the family members and agreed for the medication to be started at this time, while the patient is in the hospital. As per the nursing staff, the patient has been uncooperative, very anxious, very restless, at time borderline on agitation. PAST PSYCHIATRIC HISTORY: The patient has history of dementia. She denies past suicide attempts. She denies alcohol or drug use. FAMILY HISTORY: Unknown. SOCIAL HISTORY: The patient lives with her . MENTAL STATUS EXAM: The patient is an elderly female. She is alert, awake, and oriented to self. She simply forgettable. Psychomotor state is restless. Mood is anxious. She is suspicious. She denies any suicidal or homicidal ideation. Denies any hallucination. Insight and judgment are limited to impaired. Memory appears to be grossly impaired. CURRENT MEDICATIONS: Include: 1. Vancomycin. 2. Azithromycin. 3. Exelon patch. 4. Levothyroxine. 5. Heparin. 6. Cefepime. 7. Sodium chloride. 8. Haldol 0.5 mg IV q.6 hours p.r.n. 9. Haldol 1 mg p.o. q.4 hours p.r.n. 10. Metronidazole. 11. Acetaminophen. 12. Ondansetron. CURRENT LABS: WBC 7.34, RBC 4.42, hemoglobin 14.7, hematocrit 45.4, platelets 167. Sodium 136, potassium 3.1, chloride 101, CO2 of 24, BUN 13, creatinine 0.88, AST 30, ALT 20. ASSESSMENT: 1. Unspecified psychosis. 2. Unspecified dementia with behavior disturbances. PLAN: 1. Add Risperdal 0.25 mg p.o. at bedtime. 2. Add Risperdal 0.5 mg p.o. q.6 hours p.r.n. 3. Change Haldol p.r.n. IV to p.r.n. IM. 4. Continue Exelon patch. 5. Monitor for agitation. 6. Discussed with nursing staff and family members. Thank you for this consultation. Dictated by Jacqueline Valentin PA-C Esthela Bishop MD QTV/MODL /[id number]
[2018-11-25] MEDS: SODIUM CHLORIDE 0.9% 1000ML 1,000 ML IV SCH ×3 (02:47→18:47)
[2018-11-25] MEDS: LEVOTHYROXINE SODIUM 50 MCG TAB PO SCH (06:27)
[2018-11-25] MEDS: METRONIDAZOLE 500 MG TAB PO SCH ×3 (06:27→22:00)
[2018-11-25] MEDS: VANCOMYCIN 250MG/5ML ORAL SOLN PO SCH ×2 (06:27)
--- NOTE | 2018-11-25 06:46 | NUR ---
PT SLEPT DURING THE NIGHT .PT REFUSED THE HEPARIN SC ,PT IS AGITATED AND ANGARY WHEN GIVEN MEDICATION PT WAS KICKING THE SITTER .FAMILY AT THE BEDSIDE .CALL LIGHT WITH IN REACH .CONTINUE TO MONITOR
[2018-11-25] MEDS: CEFEPIME 1GM/NS 0.9% 50 ML 50 ML IV SCH (07:00)
--- NOTE | 2018-11-25 07:20 | NUR ---
REPORT GIVEN TO THE ONCOMING NURSE
--- NOTE | 2018-11-25 07:21 | NUR ---
MAT PATIENT, PATIENT ASLEEP, PATIENT'S COMPLAINED THAT SHE WILL NO EAT A FULL LIQUID DIET AND SHE HAS NOT EATEN IN 3 DAYS, CALLED DR. PRASANTH VALDEZ'S ANSWERING SERVICE TO REQUEST DIET CHANGE ORDER, FLAME CHANNELER STATED THAT SHE WILL CALL Hilario RAO Addendum: 11/25/18 at 0726 by Chuck Khalil RN MET PATIENT'S , PATIENT ASLEEP.
[2018-11-25] MEDS: HEPARIN SOD (PORCINE) 5,000 UNIT/ML VIAL SC SCH ×2 (09:00→21:00)
[2018-11-25] MEDS: RIVASTIGMINE PATCH 4.6MG/24 HOURS PATCH TD SCH (10:35)
[2018-11-25 10:42] VITALS: BP 119/65
[2018-11-25 12:02] VITALS: BP 108/56
[2018-11-25 15:43] VITALS: BP 150/69
--- NOTE | 2018-11-25 16:00 | Progress Note ---
DATE: 11/25/2018 SUBJECTIVE: The patient was evaluated and events noted. The patient is in the room. She is alert, awake, and oriented to situation, sitter is in her room, also her . She is irritable, but not combative. She is less restless. She has been eating as per nursing staff. She is not agitated today. She is compliant with her medication as per nurse, however, appears that she used heparin today. She took the Risperdal last night and the patient denies any side effects and there are no side effects reported or noted today. ASSESSMENT: 1. Unspecified psychosis. 2. Unspecified dementia with behavior disturbances. PLAN: 1. Continue with Risperdal 0.25 mg p.o. at bedtime for now. 2. Continue Risperdal p.r.n. p.o. 3. Continue p.r.n. IM. 4. Continue Exelon patch. 5. Monitor for agitation and mood. 6. Discussed with Dr. Bishop. He planned to see the patient today as well. Dictated by Jacqueline Valentin PA-C Esthela Bishop MD QTV/MODL /[id number]
--- NOTE | 2018-11-25 16:11 | NUR ---
WAS CALLED TO ROOM ASKED FOR REFERRALS FOR PROVIDER SERVICES GAVE PAMPHLETS FOR VISITING JAM, ALSO ABLE TO PROVIDE SENIOR RESOURCES GUIDE AND [employer]KS FOR [employer].
--- NOTE | 2018-11-25 17:44 | NUR ---
CALLED AUBREE PEREZ'S OFFICE TO REQUEST ORDER TO DISCONTINUE THE TELEMETRY MONITORING ON THE PATIENT, PATIENT IS REFUSING TELEMETRY MONITORING.
[2018-11-25] MEDS: CIPROFLOXACIN 500 MG TAB PO SCH (17:55)
--- NOTE | 2018-11-25 18:08 | NUR ---
CALLED DR. CUMMINS ANSWERING SERVICE FOR THE SECOND TIME TO REQUEST D/C OF TELEMETRY.
--- NOTE | 2018-11-25 19:00 | NUR ---
Completed bedside report with morning nurse. Pt alert to name. Coming from bathroom. ambulation steady with assist. Denies pain at this time. Family at bedside. Will continue to monitor.
[2018-11-25 20:00] VITALS: BP 118/59
[2018-11-25 21:00] VITALS: BP 118/59
[2018-11-25] MEDS: RISPERIDONE 0.5 MG TAB PO SCH (22:00)
[2018-11-26] VITALS: BP 120/74
[2018-11-26] MEDS ORDERED: POTASSIUM CHLORIDE 20 MEQ TAB CR PO STA (00:28)
--- NOTE | 2018-11-26 01:01 | NUR ---
Pt refused ordered Potassium 40 meq now ordered by Dr. Reed. Potassium level 3.1. Pt informed current potassium level is low and how important potassium is for cells in her heart. It also helps keep her blood pressure from getting too high. Pt continues to refuse states, "I'm not taking them in the middle of the night!" in bed with Pt. Sitter at bedside. Call hebert within reach. Will continue to monitor.
[2018-11-26 04:00] VITALS: BP 116/59
[2018-11-26] MEDS: LEVOTHYROXINE SODIUM 50 MCG TAB PO SCH (06:00)
[2018-11-26] MEDS: METRONIDAZOLE 500 MG TAB PO SCH (06:00)
--- NOTE | 2018-11-26 07:30 | NUR ---
change of shift report received at bedside from GILDARDO Macario. Pt lying in bed alert to AAx2 with daughter, , and 1:1 sitter in patient's room at this time. Pt is not in any acute distress noted, respirations even and unlabored. Family and sitter instructed to call for assistance as needed, bed is locked and bed alarm is on for pt's safety.
[2018-11-26 08:00] VITALS: BP 130/82
[2018-11-26 08:09] VITALS: BP 130/82
[2018-11-26] MEDS: CIPROFLOXACIN 500 MG TAB PO SCH (09:47)
[2018-11-26] MEDS ORDERED: POTASSIUM CHLORIDE 20 MEQ TAB CR PO ONE (10:00)
[2018-11-26] MEDS ORDERED: EXELON1 EAC1 (13:25)
[2018-11-26] MEDS ORDERED: CIPRO500 MG PO ×2 (13:30→13:38)
[2018-11-26] MEDS ORDERED: FLAGYL250 MG PO ×2 (13:32→13:35)
[2018-11-26] MEDS ORDERED: RISPERDAL1 MG PO (13:39)
[2018-11-26] MEDS ORDERED: EXELON1 EAC1 TOP (14:00)
--- NOTE | 2018-11-26 14:10 | NUR ---
Discharge instructions and printed materials given to pt's spouse with printed prescription. Pt and spouse with their daughter informed of the changes to current medications and instructed to take meds as prescribed. Pt's verbalized understanding. Pt is remains confused but able to follow commands and not resisting or fighting, she was in good spirits when she left the hospital via [facility] at 1420.
--- NOTE | 2018-11-27 02:50 | Discharge Summary ---
FINAL DIAGNOSES: 1. Ileitis, colitis, mild. 2. Severe dementia, with psychosis. 3. Hypothyroidism. ADMISSION HISTORY AND HOSPITAL COURSE: Ms. Claire is an 88-year-old female came in with abdominal pain, possibly colitis, ileitis. The patient was treated with IV antibiotics, improved. ID was consulted. Psychiatry was consulted because of severe dementia with psychosis. The patient was started on Risperdal and Exelon patch. She has been improving, however, she is refusing medications. This was discussed with the patient's . The patient will be discharged home to follow up with her primary care doctor and psychiatrist along with the GI doctor, Dr. Yoan Reed evaluated the patient and also cleared the patient for discharge. Discharge medications list reviewed. MD ANGIE Sotelo/TONI /[id number]
== END 2018-11-26 14:16 | disposition home or self-care (01) | DRG 392 ==
LOC: ER 12:31 → ERHOLD 19:00 → MED/SURG3 19:56
PROVIDERS: ADMIT Internal Medicine Pulmonary Disease; ATTEND Internal Medicine Pulmonary Disease
DX: K52.9 Noninfective gastroenteritis and colitis, unspecified (principal); F03.91 Unspecified dementia, unspecified severity, with behavioral disturbance; F05 Delirium due to known physiological condition; E03.9 Hypothyroidism, unspecified
CPT/HCPCS: 36415; 71045; 74177; 80053; 81001; 82550; 82553; 83605; 84436; 84443; 84479; 84484; 85025; 87086; 93005; 99284; J0692; J1644; J7030; Q9967